=== PATIENT | female | born 1935 | race Caucasian/White ===

== ENCOUNTER 2016-09-12 12:19 | Inpatient (IN) | payer MEDICARE, OTHER ==
[2016-08-29 14:38] LABS: ASCORBIC ACID (UR NOT ORDER) NEG (NEG); BILIRUBIN, URINE SMALL (NEG); KETONE, URINE NEGATIVE (NEG); LEUKOCYTE ESTERASE(NOT OR LARGE (NEG); WBC (NOT ORDERED) (RFLEX) 28 (0-5)
--- NOTE | ~2016-09-12 | OP ---
Record Of Operation [facility] [address] [place]. [address] NAME: DORY COLLINS : 39 STATUS : ADM IN PAT#: [id number] AGE: 80 ADM/REG DATE : 09/12/16 MR#: [id number] REPORT SERV DATE: 09/13/16 DICTATED BY: ILIANA TRACY DATE: 09/13/16 REPORT STATUS : Draft TRANSCRIBED BY: MODL DATE: 09/13/16 DATE OF PROCEDURE: 09/12/2016 PREOPERATIVE DIAGNOSIS: Failed right total knee arthroplasty. POSTOPERATIVE DIAGNOSIS: Failed right total knee arthroplasty. PROCEDURE: Right total knee revision arthroplasty. SURGEON: Belinda Tracy M.D. ANESTHESIA: See chart. DESCRIPTION OF PROCEDURE: The patient was taken to the operating room and placed supine on the table in normal fashion without incident. General anesthetic was induced per the anesthesiologist. The patient was carefully positioned, padded, prepped, and draped in normal sterile fashion. Right lower extremity exsanguinated, tourniquet inflated to 350 mmHg. Sharp dissection was made through the old incision with electrocautery through the fat. Sharp quad splitting approach was carried out. Medial arthrotomy was made, benign appearing fluid was sent for cultures and gram stain. There was severe black metal containing hypertrophic synovium all throughout, and a complete synovectomy was performed. The knee was brought up into flexion. The fractured tibial insert was removed. The femoral and tibial components were easily removed with flexible osteotomes. Abundant osteolytic material was debrided with electrocautery and rongeur. Sequential reamers were used to a 14 in the femur and tibia. Intramedullary guides used to cut the proximal tibia and distal femur. The remaining cuts were made in the distal femur. With trial components in place, there was excellent medial and lateral balance, and excellent flexion and extension balance. I removed heterotopic and overgrown bone and arthrofibrotic tissue from around the patella. While there was minimal oxidation in the patellar polyethylene, it was felt to be intact and stable, and therefore opted not to put her through the additional bony trauma of change now to that component. All surfaces were copiously irrigated with pulsatile lavage, and Vacuum- mixed cement premixed with antibiotic was pressurized in a doughy phase in the tibia. The tibial component placed, impacted, and excess cement removed. Cement was pressurized in the femur, placed on the posterior runners of the femoral component, which was placed, impacted, and excess cement removed. Knee brought out in extension on a trial spacer. Once all cement was hardened, knee was taken through range of motion. Further extruded cement was removed with a small osteotome. The actual insert was then placed, impacted, and checked her to be sure it was down snug. The knee was closed in a layered fashion over medium ConstaVac drain superolaterally. The wound was dressed sterilely. The patient awakened and taken to Postanesthesia Care Unit without incident. COMPLICATIONS: None. SPECIMENS REMOVED: Components and cultures. ESTIMATED BLOOD LOSS: Trace. Record Of Operation [address] [address] NAME: DORY COLLINS : 39 STATUS : ADM IN [facility]#: [id number] AGE: 80 ADM/REG DATE : 09/12/16 MR#: [id number] REPORT SERV DATE: 09/13/16 DICTATED BY: ILIANA TRACY DATE: 09/13/16 REPORT STATUS : Draft TRANSCRIBED BY: IFRAH DATE: 09/13/16 WTB/IFRAH Belinda Tracy M.D. / [id number] CC: Belinda Tracy M.D.
--- NOTE | ~2016-09-12 | DS ---
Discharge Summary [facility] [address] [place]. [address] NAME: DORY COLLINS : 39 STATUS : DIS IN PAT#: [id number] AGE: 80 ADM/REG DATE : 09/12/16 MR#: [id number] REPORT SERV DATE: 09/26/16 DICTATED BY: ILIANA YEAGER DATE: 09/26/16 REPORT STATUS : Draft TRANSCRIBED BY: MODVioleta DATE: 09/26/16 Data Collection from hospitalization DISCHARGE DIAGNOSES: 1. Failed right total knee arthroplasty. 2. Hypertension. 3. Diabetes. 4. Anxiety. 5. Depression. 6. End-stage renal disease, on hemodialysis. 7. Obesity. 8. Atrial fibrillation. 9. Congestive heart failure - diastolic. 10.Chronic obstructive pulmonary disease. CONSULTATIONS: None. PROCEDURES PERFORMED: Right total knee revision arthroplasty, 09/12/2016. 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 No significant acute inflammation. Orthopedic hardware (gross diagnosis). MEDICATIONS: Cordarone 200 mg daily, Norvasc 10 mg daily, Eliquis 2.5 mg twice a day, QVAR 1 spray via inhaler daily, Prozac 20 mg twice a day, Neurontin 300 mg at bedtime, Wrights 7.5/325 one to two tablets every four hours as needed, Levemir injection insulin as instructed, Apidra subcutaneously as instructed, Zyprexa 5 mg twice a day, Klor-Con 10 mEq daily, Coumadin 2.5 mg daily. CONDITION AT DISCHARGE: Stable. DISPOSITION: The patient was discharged home on an 1800-calorie diabetic diet with activities as instructed. She would follow up with me two weeks following discharge. She would follow up at [facility] outpatient for physical therapy 09/17/2016 and at [facility] in [place] for lab work 09/17/2016. HOSPITAL COURSE: This is a 80-year-old female who had complained of right knee pain for a couple of months, it had gradually got worse and was severe at time. This knee had been replaced 15 years ago. She was felt to have failed right total knee arthroplasty. Treatment options were discussed and it was elected to proceed with surgical intervention. She was admitted to the hospital at this time for further evaluation and treatment. Upon admission, she was taken to the operating room where she underwent the above-mentioned procedure. She tolerated this well. There were no complications. On postop day #1, she was doing well. She was up sitting in a bedside chair. YURI hose were in place. Blood pressure was controlled. Amlodipine was continued. She was receiving sliding scale insulin and Levemir. She was also getting Zyprexa, Prozac, and her Neurontin was continued. She had been on Eliquis for her dysrhythmia. She was now on Coumadin and amiodarone was also Discharge Summary [address] [address] NAME: DORY COLLINS : 39 STATUS : DIS IN PAT#: [id number] AGE: 80 ADM/REG DATE : 09/12/16 MR#: [id number] REPORT SERV DATE: 09/26/16 DICTATED BY: ILIANA YEAGER DATE: 09/26/16 REPORT STATUS : Draft TRANSCRIBED BY: IFRAH DATE: 09/26/16 going to be given. Creatinine level was 2.66. On postop day #2, she had more swelling. She had no shortness of breath. Creatinine level was 2.29. Hemodialysis therapy was performed. The patient was seen by Dasha Martin. The patient does have end-stage renal disease. She had 1+ lower extremity edema. Magnesium supplementation was given. Hemodialysis therapy continued. She was evaluated by Physical Therapy. Over the next couple of days, discharge planning was performed. She had been evaluated by Physical Therapy. She was in no acute distress. She seemed to be doing well. INR level was 2.0. Discharge planning was performed. On 09/16/2016, she continued to do well. She was mobilizing with Physical Therapy. Discharge instructions were given. Due to her improved and stable condition, she was discharged home with the above-stated instructions. Information collected by: Estrellita Jacobson I submit the above information as my discharge summary. DINA/IFRAH Belinda Yeager M.D. / [id number] CC: Amber Cutler M.D. Jessica Craig, FNP
[~2016-09-12 12:19] MED LIST: ACET500CAP PO; AMB10 PO; APIDRA SC; APRES50 PO; ASAB PO; ATEN50 PO; ATENOLOL; C2 PO; CO Q-10 PO; COENZYME Q10 PO; CORDARONE PO; COREG3 PO; DEMA20 PO; ELIQUIS 2.5 MG2.5 MG PO; ELIQUIS 5 MG TAB5 MG PO; FISH OIL PO; FLECAINIDE100 MG PO; FLECAINIDE50 MG PO; FOLIC PO; INSULIN; ISORDIL20 PO; KLOR-CON 1010 MEQ PO; KLOR-CON M1010 MEQ PO; L40; L40 PO; L80 PO; LEVAMIR; LEVEMFLXPN SC; LEVEMIR SC; MAX25 PO; METFORMIN; NEUR300 PO; NORV10 PO; NORV5 PO; PROVHFA INH; PROZAC PO; QVAR80 MCG INH; REST15 PO; RYTHMOL150 MG PO; SPIRIVA INH; SYMBYAX PO; T PO; TRICOR145 PO; TRILIPIX135 MG PO; TRIPLEX; TUMSROLL PO; ULTRAM50 PO; UNKNOWN INHALER INH; VITAMIN B-12 PO; ZOCOR40 PO; ZYP2 PO; ZYP5 PO; ZYPREXA
[2016-09-12 14:52] LABS: BASOPHILS 0.2 %; BASOPHILS ABSOLUTE 0.01 10/3/uL (0.0-0.16); EOSINOPHILS 1.3 %; EOSINOPHILS ABSOLUTE 0.07 10/3/uL (0.0-0.53); IMMATURE GRANULOCYTES 0.4 %; IMMATURE GRANULOCYTES ABSOLUTE 0.02 10/3/uL (0.0-0.11); LYMPHOCYTES ABSOLUTE 1.43 10/3/uL (0.67-4.30); MEAN CORPUSCULAR HEMOGLOB 31.9 pg (26.0-34.0); MEAN CORPUSCULAR VOLUME 93.5 fL (80-100); MEAN PLATELET VOLUME 10.1 fL (9.2-13.0); MONOCYTES 10.7 %; MONOCYTES ABSOLUTE 0.59 10/3/uL (0.21-1.20); NEUTROPHILS 61.4 %; NEUTROPHILS ABSOLUTE 3.39 10/3/uL (2.02-8.40); PLATELET COUNT 140 10/3/uL (150-400); RBC DISTRIBUTION WIDTH 13.6 % (12.0-16.0)
[2016-09-12 14:53] LABS: HEMATOCRIT 37.5 % (36.0-48.0); HEMOGLOBIN 12.8 g/dL (12.0-16.0); MANUAL DIFF NO %; MEAN CORPUS HGB CONC 34.1 g/dL (32.0-36.0); RED CELL COUNT 4.01 10/6/uL (4.0-5.6); WHITE BLOOD CELLS 5.5 10/3/uL (4.5-10.5)
[2016-09-12 15:00] LABS: INTERNATIONAL NORMAL RATI 1.1 UNITS (-); PROTIME (NOT ORD) 14.4 SEC (12.0-14.5)
[2016-09-12 15:09] LABS: A/G RATIO 0.8 (0.7-1.9); ALBUMIN 3.7 G/DL (3.5-5.0); CHLORIDE, SERUM 97 MMOL/L (96-112); CO2 (CARBON DIOXIDE) 25 MMOL/L (24-34); CREATININE 2.29 MG/DL (0.55-1.02); GFR AFRICAN AMERICAN 23 ML/MIN (>=60); GFR NON AFRICAN AMERICAN 20 ML/MIN (>=60); GLOBULIN 4.4 G/DL (2.5-4.1); SGOT(AST) 46 U/L (5-40); SGPT(ALT) 32 U/L (5-65); SODIUM, SERUM 133 MMOL/L (135-148); TOTAL PROTEIN 8.1 G/DL (6.0-8.5)
[2016-09-12 15:10] LABS: ALKALINE PHOSPHATASE 194 U/L (45-117); BUN (BLOOD UREA NITROGEN) 19 MG/DL (6-23); CALCIUM, SERUM 9.3 MG/DL (8.5-10.4); GLUCOSE, SERUM 126 MG/DL (60-99); TOTAL BILIRUBIN 0.8 MG/DL (0-1.2)
[2016-09-13 07:26] LABS: CHLORIDE, SERUM 98 MMOL/L (96-112); CO2 (CARBON DIOXIDE) 26 MMOL/L (24-34); POTASSIUM, SERUM 4.1 MMOL/L (3.5-5.3); SODIUM, SERUM 133 MMOL/L (135-148)
[2016-09-13 07:27] LABS: BUN (BLOOD UREA NITROGEN) 23 MG/DL (6-23); GLUCOSE, SERUM 169 MG/DL (60-99)
[2016-09-13 07:29] LABS: CREATININE 2.66 MG/DL (0.55-1.02); GFR AFRICAN AMERICAN 19 ML/MIN (>=60); GFR NON AFRICAN AMERICAN 17 ML/MIN (>=60)
[2016-09-13 11:51] LABS: INTERNATIONAL NORMAL RATI 1.2 UNITS (-); PROTIME (NOT ORD) 14.6 SEC (12.0-14.5)
[2016-09-13 15:18] LABS: BASOPHILS 0.1 %; BASOPHILS ABSOLUTE 0.01 10/3/uL (0.0-0.16); EOSINOPHILS 1.7 %; EOSINOPHILS ABSOLUTE 0.17 10/3/uL (0.0-0.53); HEMOGLOBIN 11.4 g/dL (12.0-16.0); IMMATURE GRANULOCYTES 0.2 %; IMMATURE GRANULOCYTES ABSOLUTE 0.02 10/3/uL (0.0-0.11); LYMPHOCYTES 5.3 %; LYMPHOCYTES ABSOLUTE 0.52 10/3/uL (0.67-4.30); MEAN CORPUS HGB CONC 34.4 g/dL (32.0-36.0); MONOCYTES 12.2 %; MONOCYTES ABSOLUTE 1.19 10/3/uL (0.21-1.20); NEUTROPHILS 80.5 %; NEUTROPHILS ABSOLUTE 7.81 10/3/uL (2.02-8.40); PLATELET COUNT 148 10/3/uL (150-400); RBC DISTRIBUTION WIDTH 13.9 % (12.0-16.0); RED CELL COUNT 3.56 10/6/uL (4.0-5.6)
[2016-09-13 15:22] LABS: HEMATOCRIT 33.1 % (36.0-48.0); MANUAL DIFF NO %; WHITE BLOOD CELLS 9.7 10/3/uL (4.5-10.5)
[2016-09-13 15:30] LABS: ALBUMIN 3.3 G/DL (3.5-5.0); BUN (BLOOD UREA NITROGEN) 12 MG/DL (6-23); CALCIUM, SERUM 7.9 MG/DL (8.5-10.4); CHLORIDE, SERUM 101 MMOL/L (96-112); CO2 (CARBON DIOXIDE) 28 MMOL/L (24-34); CREATININE 1.42 MG/DL (0.55-1.02); GFR AFRICAN AMERICAN 41 ML/MIN (>=60); GFR NON AFRICAN AMERICAN 35 ML/MIN (>=60); GLUCOSE, SERUM 209 MG/DL (60-99); PHOSPHORUS, SERUM 2.1 MG/DL (2.5-4.5); SODIUM, SERUM 137 MMOL/L (135-148)
[2016-09-14 09:41] LABS: BASOPHILS 0.3 %; BASOPHILS ABSOLUTE 0.02 10/3/uL (0.0-0.16); EOSINOPHILS ABSOLUTE 0.16 10/3/uL (0.0-0.53); HEMOGLOBIN 10.2 g/dL (12.0-16.0); IMMATURE GRANULOCYTES 0.3 %; IMMATURE GRANULOCYTES ABSOLUTE 0.02 10/3/uL (0.0-0.11); LYMPHOCYTES 14.1 %; LYMPHOCYTES ABSOLUTE 1.11 10/3/uL (0.67-4.30); MEAN CORPUSCULAR HEMOGLOB 32.1 pg (26.0-34.0); MEAN CORPUSCULAR VOLUME 94.3 fL (80-100); MEAN PLATELET VOLUME 9.6 fL (9.2-13.0); MONOCYTES 11.4 %; NEUTROPHILS 71.9 %; NEUTROPHILS ABSOLUTE 5.68 10/3/uL (2.02-8.40); PLATELET COUNT 142 10/3/uL (150-400); RBC DISTRIBUTION WIDTH 14.1 % (12.0-16.0); RED CELL COUNT 3.18 10/6/uL (4.0-5.6); WHITE BLOOD CELLS 7.9 10/3/uL (4.5-10.5)
[2016-09-14 09:49] LABS: MANUAL DIFF NO %
[2016-09-14 09:53] LABS: INTERNATIONAL NORMAL RATI 1.6 UNITS (-)
[2016-09-14 09:56] LABS: PROTIME (NOT ORD) 18.9 SEC (12.0-14.5)
[2016-09-14 09:58] LABS: CALCIUM, SERUM 8.3 MG/DL (8.5-10.4); CHLORIDE, SERUM 99 MMOL/L (96-112); CO2 (CARBON DIOXIDE) 27 MMOL/L (24-34); GLUCOSE, SERUM 182 MG/DL (60-99); POTASSIUM, SERUM 4.2 MMOL/L (3.5-5.3); SODIUM, SERUM 135 MMOL/L (135-148)
[2016-09-14 09:59] LABS: BUN (BLOOD UREA NITROGEN) 19 MG/DL (6-23); CREATININE 2.49 MG/DL (0.55-1.02); GFR AFRICAN AMERICAN 21 ML/MIN (>=60); GFR NON AFRICAN AMERICAN 18 ML/MIN (>=60); PHOSPHORUS, SERUM 2.9 MG/DL (2.5-4.5)
[2016-09-15 07:23] LABS: BASOPHILS 0.2 %; BASOPHILS ABSOLUTE 0.01 10/3/uL (0.0-0.16); EOSINOPHILS 2.9 %; EOSINOPHILS ABSOLUTE 0.19 10/3/uL (0.0-0.53); HEMOGLOBIN 8.7 g/dL (12.0-16.0); IMMATURE GRANULOCYTES 0.5 %; IMMATURE GRANULOCYTES ABSOLUTE 0.03 10/3/uL (0.0-0.11); LYMPHOCYTES 18.5 %; MANUAL DIFF NO %; MEAN CORPUS HGB CONC 34.8 g/dL (32.0-36.0); MEAN CORPUSCULAR HEMOGLOB 32.7 pg (26.0-34.0); MEAN PLATELET VOLUME 9.8 fL (9.2-13.0); MONOCYTES 13.1 %; MONOCYTES ABSOLUTE 0.85 10/3/uL (0.21-1.20); NEUTROPHILS 64.8 %; NEUTROPHILS ABSOLUTE 4.19 10/3/uL (2.02-8.40); PLATELET COUNT 134 10/3/uL (150-400); RBC DISTRIBUTION WIDTH 14.3 % (12.0-16.0); RED CELL COUNT 2.66 10/6/uL (4.0-5.6); WHITE BLOOD CELLS 6.5 10/3/uL (4.5-10.5)
[2016-09-15 07:41] LABS: ALBUMIN 2.6 G/DL (3.5-5.0); BUN (BLOOD UREA NITROGEN) 24 MG/DL (6-23); CHLORIDE, SERUM 95 MMOL/L (96-112); CO2 (CARBON DIOXIDE) 27 MMOL/L (24-34); CREATININE 2.95 MG/DL (0.55-1.02); GFR AFRICAN AMERICAN 17 ML/MIN (>=60); GFR NON AFRICAN AMERICAN 15 ML/MIN (>=60); GLUCOSE, SERUM 171 MG/DL (60-99); PHOSPHORUS, SERUM 3.1 MG/DL (2.5-4.5); POTASSIUM, SERUM 4.2 MMOL/L (3.5-5.3); SODIUM, SERUM 130 MMOL/L (135-148)
[2016-09-15 07:50] LABS: PROTIME (NOT ORD) 22.1 SEC (12.0-14.5)
[2016-09-16 04:18] LABS: HEMATOCRIT 26.7 % (36.0-48.0); HEMOGLOBIN 8.8 g/dL (12.0-16.0)
[2016-09-16 04:25] LABS: PROTIME (NOT ORD) 22.6 SEC (12.0-14.5)
[2016-09-16 04:34] LABS: BUN (BLOOD UREA NITROGEN) 19 MG/DL (6-23); CALCIUM, SERUM 8.1 MG/DL (8.5-10.4); CHLORIDE, SERUM 100 MMOL/L (96-112); CO2 (CARBON DIOXIDE) 29 MMOL/L (24-34); CREATININE 3.02 MG/DL (0.55-1.02); GFR AFRICAN AMERICAN 16 ML/MIN (>=60); GFR NON AFRICAN AMERICAN 14 ML/MIN (>=60); GLUCOSE, SERUM 126 MG/DL (60-99); POTASSIUM, SERUM 4.5 MMOL/L (3.5-5.3); SODIUM, SERUM 135 MMOL/L (135-148)
[2016-09-16] MEDS ORDERED: C25 PO (10:28)
[2016-09-16] MEDS ORDERED: NORCO1 TA2 PO (10:29)
== END 2016-09-16 11:21 | disposition home or self-care (01) | DRG 466 ==
LOC: SDC/OF 12:19 → PACU 19:12 → 3SO 20:16
PROVIDERS: Nurse Practitioner; Nurse Practitioner Acute Care; Specialist
PROC: 0SPC0JZ Removal of Synthetic Substitute from Right Knee Joint, Open Approach (ICD-10-PCS; 2016-09-12)
PROC: 0SRC0JZ Replacement of Right Knee Joint with Synthetic Substitute, Open Approach (ICD-10-PCS; principal; 2016-09-12 15:15)
DX: T84.092A Other mechanical complication of internal right knee prosthesis, initial encounter (principal); N18.6 End stage renal disease; I13.2 Hypertensive heart and chronic kidney disease with heart failure and with stage 5 chronic kidney disease, or end stage renal disease; E11.22 Type 2 diabetes mellitus with diabetic chronic kidney disease; I50.32 Chronic diastolic (congestive) heart failure; F31.9 Bipolar disorder, unspecified; I48.91 Unspecified atrial fibrillation
CPT/HCPCS: 71020; 80048; 80053; 80069; 81001; 82962; 83735; 85014; 85018; 85025; 85610; 87015; 87070; 87075; 87077; 87086; 87102; 87116; 87186; 87205; 87641; 88300; 88304; 88311; 93005; 94640; 97110-GP; 97116-GP; 97161-GP; 97165-GO; 97530-GP; A9270-GY; C1776; G0257; J0690; J1580; J1885; J2250; J2270; J2795; J3010; J3475; P9047